=== PATIENT | male | born 1980 | race Caucasian/White ===

== ENCOUNTER 2017-01-08 05:07 | Emergency (ER) | payer OTHER ==
[2017-01-08 05:49] VITALS: TEMP 97.9; BMI 29.0
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
[2017-01-08] MEDS: SODIUM CHLORIDE 1,000 ML IV STA (06:20)
[2017-01-08 06:31] LABS: BASOPHIL 0.8 % (0-2.0); EOSINOPHIL 0.5 % (0-4.5); MCH 29.6 pg (25.7-33.7); MCHC 33.8 g/dl (32.0-35.9); MEAN CELL VOLUME 87.7 fl (80-96); MEAN PLT VOLUME 9.2 fl (7.5-11.1); NEUTROPHILS 62.1 % (42.8-82.8); PLATELET COUNT 242 K/MM3 (134-434); RDW 14.2 % (11.9-15.9); WHITE BLOOD COUNT 5.9 K/mm3 (4.0-10.0)
[2017-01-08 06:40] LABS: INR 1.01 (0.82-1.09); PROTHROMBIN TIME (PATIENT) 11.1 SEC (9.98-11.88)
[2017-01-08 06:47] LABS: ALBUMIN 4.1 g/dl (3.4-5.0); ANION GAP 10 (8-16); BILIRUBIN,TOTAL 0.3 mg/dL (0.2-1.0); CALCIUM 8.5 mg/dL (8.5-10.1); CO2 25 mmol/L (21-32); COCKROFT - GAULT 170.09; CREATININE 0.7 mg/dL (0.7-1.3); GLUCOSE,RANDOM 106 mg/dL (74-106); MAGNESIUM 2.4 mg/dL (1.8-2.4); SGOT/AST 43 U/L (15-37); SGPT/ALT 67 U/L (12-78); TOT PROT 7.5 g/dl (6.4-8.2)
[2017-01-08 06:48] LABS: ALK PHOS 121 U/L (45-117)
[2017-01-08 08:55] VITALS: BP 137/70; PULSE 94
[2017-01-08] MEDS ORDERED: OXYCODONE/APAP 5/325MG COMBO TABLET ONE (09:25)
[2017-01-08] MEDS: DIPHTH,PERTUSS(ACELL),TET 0.5 ML DISP.SYRIN IM ONE (09:26)
[2017-01-08] MEDS: OXYCODONE/APAP 5/325MG COMBO TABLET PO ONE (09:39)
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
[2017-01-08 11:21] LABS: URINE APPEARANCE CLEAR; URINE BILIRUBIN NEGATIVE (NEGATIVE); URINE BLOOD NEGATIVE (NEGATIVE); URINE COLOR COLORLESS; URINE GLUCOSE (UA) NEGATIVE (NEGATIVE); URINE KETONE NEGATIVE (NEGATIVE); URINE LEUK ESTERASE NEGATIVE (NEGATIVE); URINE NITRITE NEGATIVE (NEGATIVE); URINE PROTEIN NEGATIVE (NEGATIVE); URINE UROBILINOGEN NEGATIVE E.U./dl (0.2-1.0)
== END 2017-01-08 12:58 | disposition home or self-care (01) ==
LOC: JER 05:07
PROC: 3E0234Z Introduction of Serum, Toxoid and Vaccine into Muscle, Percutaneous Approach (ICD-10-PCS; principal; 2017-01-08)
PROC: 3E0337Z Introduction of Electrolytic and Water Balance Substance into Peripheral Vein, Percutaneous Approach (ICD-10-PCS; 2017-01-08)
DX: S60.222A Contusion of left hand, initial encounter (principal); S50.812A Abrasion of left forearm, initial encounter; V43.02XA Car driver injured in collision with other type car in nontraffic accident, initial encounter; Y93.89 Activity, other specified; Y92.410 Unspecified street and highway as the place of occurrence of the external cause
CPT/HCPCS: 36415; 70450-TC; 71260-TC; 72125-TC; 73110-TC-LT; 73130-TC-LT; 74177-TC; 80053; 80307; 81003; 83735; 85025; 85610; 90715; 99285-25

== ENCOUNTER 2017-02-16 19:30 | Inpatient (IN) | payer OTHER ==
[2017-02-16 20:03] LABS: URINE APPEARANCE CLEAR; URINE BILIRUBIN NEGATIVE (NEGATIVE); URINE COLOR LTYELLOW; URINE GLUCOSE (UA) NEGATIVE (NEGATIVE); URINE KETONE NEGATIVE (NEGATIVE); URINE LEUK ESTERASE NEGATIVE (NEGATIVE); URINE NITRITE NEGATIVE (NEGATIVE); URINE PROTEIN NEGATIVE (NEGATIVE); URINE UROBILINOGEN NEGATIVE E.U./dl (0.2-1.0)
[2017-02-16 20:09] LABS: URINE BLOOD 1+ (NEGATIVE)
[2017-02-16 20:10] LABS: URINE RBC 1 /hpf (0-3); URINE WBC 1 /hpf (3-5)
--- NOTE | 2017-02-16 20:40 | PDOC ---
History of Present Illness <Velma Scales - Last Filed: 02/16/17 20:39> - General History Source: Patient Exam Limitations: No Limitations - History of Present Illness Initial Comments: 02/16/17 22:31 The patient is a 36 year old male, with no significant past medical history of cholecystectomy (1 year ago) , who presents to the emergency room complaining of 1 week of epigastric pain. The patient explains that the pain has progressively worsened, is constant, and radiates to the left back. He notes that his bowel movements are normal. He denies fever, chills, nausea, vomiting. He denies diarrhea, constipation. He denies chest pain, SOB. He denies urinary changes. Allergies: none reported Social Hx: No tobacco use. Occasional alcohol use. PCP: none <Paige Henry - Last Filed: 02/16/17 23:35> <Radha Bruno - Last Filed: 02/17/17 01:53> - General Chief Complaint: Pain, Acute Stated Complaint: STOMACH PAIN Time Seen by Provider: 02/16/17 19:43 Past History - Past Medical History Anemia: No Asthma: No Cancer: No Cardiac Disorders: No CVA: No COPD: No CHF: No Dementia: No Diabetes: No GI Disorders: No Disorders: No HTN: No Hypercholesterolemia: No Liver Disease: No Seizures: No Thyroid Disease: No - Surgical History Abdominal Surgery: No Appendectomy: No Cardiac Surgery: No Cholecystectomy: Yes Lung Surgery: No Neurologic Surgery: No Orthopedic Surgery: No - Psycho/Social/Smoking Cessation Hx Anxiety: No Suicidal Ideation: No Smoking History: Never smoked Have you smoked in the past 12 months: No Number of Cigarettes Smoked Daily: 0 Hx Alcohol Use: Yes Drug/Substance Use Hx: No Substance Use Type: Alcohol <Velma Scales Lois - Last Filed: 02/16/17 20:39> <Paige Henry - Last Filed: 02/16/17 23:35> <Radha Bruno - Last Filed: 02/17/17 01:53> - Past Medical History Allergies/Adverse Reactions: Allergies Allergy/AdvReac Type Severity Reaction Status Date / Time No Known Allergies Allergy Verified 02/16/17 19:37 Home Medications: Ambulatory Orders NK [No Known Home Medication] 01/08/17 Review of Systems - Review of Systems Able to Perform ROS?: Yes Comments:: 02/16/17 22:31 CONSTITUTIONAL: Absent: fever, no chills, no fatigue EYES: Absent: visual changes ENT: Absent: ear pain, no sore throat CARDIOVASCULAR: Absent: chest pain, no palpitations RESPIRATORY: Absent: cough, no SOB GI: Present: epigastric pain radiating to the left back Absent: no nausea, no vomiting, no constipation, no diarrhea GENITOURINARY: Absent: dysuria, no frequency, no hematuria MUSCULOSKELETAL: Absent: back pain, no arthralgia, no myalgia SKIN: Absent: rash NEURO: Absent: headache <Paige Henry - Last Filed: 02/16/17 23:35> *Physical Exam - Vital Signs Last Vital Signs Temp Pulse Resp BP Pulse Ox 97.7 F 68 18 130/80 100 02/16/17 19:37 02/16/17 19:37 02/16/17 19:37 02/16/17 19:37 02/16/17 19:37 <Velma Scales - Last Filed: 02/16/17 20:39> - Vital Signs Last Vital Signs Temp Pulse Resp BP Pulse Ox 97.7 F 68 18 130/80 100 02/16/17 19:37 02/16/17 19:37 02/16/17 19:37 02/16/17 19:37 02/16/17 19:37 - Physical Exam Comments: 02/16/17 22:31 GENERAL: Well-appearing, well-nourished. No apparent distress. HEENT: Normocephalic, atraumatic. PERRL, EOM intact. CARDIOVASCULAR: Normal S1, S2. Regular rate and rhythm. PULMONARY: Clear to auscultation bilaterally. ABDOMEN: Soft, non-distended, non-tender. Good bowel sounds. EXTREMITIES: Normal ROM in all four extremities. No gross deformities. SKIN: Warm, dry. No rash NEUROLOGICAL: No focal neurological deficits. <Paige Henry - Last Filed: 02/16/17 23:35> - Vital Signs Last Vital Signs Temp Pulse Resp BP Pulse Ox 97.7 F 68 18 130/80 100 02/16/17 19:37 02/16/17 19:37 02/16/17 19:37 02/16/17 19:37 02/16/17 19:37 <Radha Bruno - Last Filed: 02/17/17 01:53> ED Treatment Course - ADDITIONAL ORDERS Additional order review: Laboratory Results 02/16/17 19:57 Urine Color Ltyellow Urine Appearance Clear Urine pH 5.0 Urine Protein Negative Urine Glucose (UA) Negative Urine Ketones Negative Urine Blood 1+ H Urine Nitrite Negative Urine Bilirubin Negative Urine Urobilinogen Negative Ur Leukocyte Esterase Negative Urine RBC 1 Urine WBC 1 Ur Epithelial Cells Rare <Velma Scales - Last Filed: 02/16/17 20:39> - LABORATORY CBC & Chemistry Diagram: 02/16/17 23:00 02/16/17 23:00 - ADDITIONAL ORDERS Additional order review: Laboratory Results 02/16/17 19:57 Urine Color Ltyellow Urine Appearance Clear Urine pH 5.0 Ur Specific [place] >= 1.030 H Urine Protein Negative Urine Glucose (UA) Negative Urine Ketones Negative Urine Blood 1+ H Urine Nitrite Negative Urine Bilirubin Negative Urine Urobilinogen Negative Ur Leukocyte Esterase Negative Urine RBC 1 Urine WBC 1 Ur Epithelial Cells Rare - RADIOLOGY Radiograph Interpretation: 02/16/17 23:35 Exam: Abdominal sonogram Findings: The visualized aorta has a normal caliber and the visualized pancreatic parenchyma is unremarkable. The liver is of normal appearance and echotexture measures 16.3 cm in length. Hepatopetal flow is demonstrated in the main portal vein. The CBD measures 6 mm in diameter near the upper limits of normal for size. The entire duct is not visualized. The right kidney has a normal appearance and echotexture measures 11.2 cm in length. No parenchymal mass, shadowing calculus or hydronephrosis is seen. Additional measurements of the CBD 24 mm in diameter. Impression: Status post cholecystectomy. Limited pancreas. The visualized parenchyma is unremarkable. Normal appearance of the liver and right kidney. CBD not entirely visualized. The visualized segment is nondistended. No calculi seen. THIS DOCUMENT HAS BEEN ELECTRONICALLY SIGNED Josue Valerio M.D. <Paige Henry - Last Filed: 02/16/17 23:35> - LABORATORY CBC & Chemistry Diagram: 02/16/17 23:00 02/16/17 23:00 - ADDITIONAL ORDERS Additional order review: Laboratory Results 02/16/17 02/16/17 23:00 19:57 Sodium 139 Potassium 4.1 Chloride 103 Carbon Dioxide 25 Anion Gap 11 BUN 14 Creatinine 0.9 D Creat Clearance w eGFR > 60 Random Glucose 103 Calcium 8.9 Total Bilirubin 1.0 D AST 276 H D ALT 208 H D Alkaline Phosphatase 139 H Total Protein 7.4 Albumin 4.0 Lipase 210 Urine Color Ltyellow Urine Appearance Clear Urine pH 5.0 Ur Specific [place] >= 1.030 H Urine Protein Negative Urine Glucose (UA) Negative Urine Ketones Negative Urine Blood 1+ H Urine Nitrite Negative Urine Bilirubin Negative Urine Urobilinogen Negative Ur Leukocyte Esterase Negative Urine RBC 1 Urine WBC 1 Ur Epithelial Cells Rare 02/16/17 23:00 RBC 5.05 MCV 87.7 MCHC 32.9 RDW 14.1 MPV 9.3 Neutrophils % 71.8 Lymphocytes % 19.4 D Monocytes % 8.1 Eosinophils % 0.2 Basophils % 0.5 - Medications Given in the ED: ED Medications Discontinued Medications Generic Name Dose Route Start Last Admin Trade Name Freq PRN Reason Stop Dose Admin Al Hydroxide/Mg Hydroxide 30 ml 02/16/17 22:57 02/16/17 23:12 Mylanta Oral Suspension - PO 02/16/17 22:58 30 ml ONCE ONE Administration Ranitidine HCl 300 mg 02/16/17 22:56 02/16/17 23:12 Zantac - PO 02/16/17 22:57 300 mg ONCE ONE Administration <Radha Bruno - Last Filed: 02/17/17 01:53> Medical Decision Making - Medical Decision Making 02/17/17 01:24 Patient Name: Paul Lopez This is a preliminary report by imaging integration manager Exam: Contrast-enhanced CT abdomen pelvis Images: [id number] Clinical indication: Epigastric pain. Findings: Subsegmental dependent atelectatic changes are noted in the lung bases. A calcified granuloma is noted in the left lobe of liver. The liver is otherwise unremarkable. The patient is status post cholecystectomy. There is slight thickening and enhancement of the cystic duct remnant and proximal CBD. Slight haziness of the periductal fat is noted. which The spleen and pancreas have a normal appearance. The adrenal glands are unremarkable. The kidneys have a normal appearance and enhance symmetrically. There is no evidence of urinary tract obstruction. The gastrointestinal tract does not appear obstructed. No thickened or dilated bowel is seen. The appendix is a normal appearance. There is no mesenteric infiltration. The urinary bladder , prostate and seminal vessels are unremarkable. No abdominal or pelvic adenopathy is seen. No lytic or blastic destructive osseous lesions are seen. Impression: Slight mural thickening and hyperemia of the cystic duct remnant and the proximal CBD with his infiltration of the fat in the hepatoduodenal ligament. Cholangitis can have this appearance. THIS DOCUMENT HAS BEEN ELECTRONICALLY SIGNED Pt needs admission for cholangitis I will treat with zosym <Radha Bruno - Last Filed: 02/17/17 01:53> *DC/Admit/Observation/Transfer <Velma Scales - Last Filed: 02/16/17 20:39> - Attestations Scribe Attestion: 02/16/17 22:31 Documentation prepared by AGNES Grady, acting as medical dermatologist for Velma Scales MD. <Paige Henry - Last Filed: 02/16/17 23:35> - Discharge Dispostion Admit: Yes <Radha Bruno - Last Filed: 02/17/17 01:53> Diagnosis at time of Disposition: Cholangitis, Mild alcohol abuse, Elevated liver enzymes, Cholecystitis - Discharge Dispostion Condition at time of disposition: Guarded
[2017-02-16] MEDS ORDERED: RANITIDINE HCL 150 MG TABLET (FP) PO ONE (22:56)
[2017-02-16] MEDS ORDERED: MAG HYDROX/AL HYDROX/SIMETH 30 ML UNIT-DOSE CUP PO ONE (22:57)
[2017-02-16] MEDS ORDERED: RANITIDINE HCL 50 MG/2 ML VIAL ONE (23:08)
[2017-02-16] MEDS ORDERED: MAG HYDROX/AL HYDROX/SIMETH 30 ML UNIT-DOSE CUP ONE (23:08)
[2017-02-16 23:09] LABS: BASOPHIL 0.5 % (0-2.0); EOSINOPHIL 0.2 % (0-4.5); MCH 28.8 pg (25.7-33.7); MCHC 32.9 g/dl (32.0-35.9); MEAN CELL VOLUME 87.7 fl (80-96); MEAN PLT VOLUME 9.3 fl (7.5-11.1); NEUTROPHILS 71.8 % (42.8-82.8); PLATELET COUNT 229 K/MM3 (134-434); RDW 14.1 % (11.9-15.9); WHITE BLOOD COUNT 11.5 K/mm3 (4.0-10.0)
[2017-02-16 23:45] LABS: ALK PHOS 139 U/L (45-117); ANION GAP 11 (8-16); CALCIUM 8.9 mg/dL (8.5-10.1); CO2 25 mmol/L (21-32); COCKROFT - GAULT 135.23; CREATININE 0.9 mg/dL (0.7-1.3); GLUCOSE,RANDOM 103 mg/dL (74-106); SGOT/AST 276 U/L (15-37); SGPT/ALT 208 U/L (12-78); TOT PROT 7.4 g/dl (6.4-8.2)
[2017-02-17] MEDS ORDERED: PIPERACILLIN/TAZOB 3.375 GM 3.375 GM in DEXTROSE 5%-WATER - 50 ML IVPB ONE (01:28)
[2017-02-17] MEDS ORDERED: PIPERACILLIN/TAZOB 3.375 GM 50 ML IVPB ONE (01:29)
--- NOTE | 2017-02-17 01:54 | PN ---
<Effie,Carlitosdian - Last Filed: 02/17/17 01:53> Teaching Attending Note Name of Resident: Kaci Espinal ATTENDING PHYSICIAN STATEMENT I saw and evaluated the patient. I reviewed the resident's note and discussed the case with the resident. I agree with the resident's findings and plan as documented. SUBJECTIVE: OBJECTIVE: ASSESSMENT AND PLAN: <Susan Gardiner - Last Filed: 02/17/17 02:07> Teaching Attending Note ATTENDING PHYSICIAN STATEMENT I saw and evaluated the patient. I reviewed the resident's note and discussed the case with the resident. I agree with the resident's findings and plan as documented. SUBJECTIVE: 36 year old male with pmhx of gastritis and cholecystectomy(1 year ago) with epigastric pain. Pain worsening over the course of week radiating to the back. He denies fever, chills, nausea, vomiting, or diarrhea. OBJECTIVE: VS: Last Vital Signs Temp Pulse Resp BP Pulse Ox 97.7 F 68 18 130/80 100 02/16/17 19:37 02/16/17 19:37 02/16/17 19:37 02/16/17 19:37 02/16/17 19:37 GEN: NAD HEENT: NCAT, PERRL CARD: RRR, S1 S2 RESP: CTAB ABD: NT, BWS x4 EXT: - CCE LABS: CBCD WBC 11.5 K/mm3 (4.0-10.0) H D 02/16/17 23:00 RBC 5.05 M/mm3 (4.00-5.60) 02/16/17 23:00 Hgb 14.6 GM/dL (11.7-16.9) 02/16/17 23:00 Hct 44.3 % (35.4-49) 02/16/17 23:00 MCV 87.7 fl (80-96) 02/16/17 23:00 MCHC 32.9 g/dl (32.0-35.9) 02/16/17 23:00 RDW 14.1 % (11.9-15.9) 02/16/17 23:00 Plt Count 229 K/MM3 (134-434) 02/16/17 23:00 MPV 9.3 fl (7.5-11.1) 02/16/17 23:00 CMP Sodium 139 mmol/L (136-145) 02/16/17 23:00 Potassium 4.1 mmol/L (3.5-5.1) 02/16/17 23:00 Chloride 103 mmol/L (98-107) 02/16/17 23:00 Carbon Dioxide 25 mmol/L (21-32) 02/16/17 23:00 Anion Gap 11 (8-16) 02/16/17 23:00 BUN 14 mg/dL (7-18) 02/16/17 23:00 Creatinine 0.9 mg/dL (0.7-1.3) D 02/16/17 23:00 Creat Clearance w eGFR > 60 (>60) 02/16/17 23:00 Calcium 8.9 mg/dL (8.5-10.1) 02/16/17 23:00 Total Bilirubin 1.0 mg/dL (0.2-1.0) D 02/16/17 23:00 AST 276 U/L (15-37) H D 02/16/17 23:00 ALT 208 U/L (12-78) H D 02/16/17 23:00 Alkaline Phosphatase 139 U/L (45-117) H 02/16/17 23:00 Total Protein 7.4 g/dl (6.4-8.2) 02/16/17 23:00 Albumin 4.0 g/dl (3.4-5.0) 02/16/17 23:00 IMAGING: This is a preliminary report by imaging sales promotion director Exam: Abdominal sonogram Findings: The visualized aorta has a normal caliber and the visualized pancreatic parenchyma is unremarkable. The liver is of normal appearance and echotexture measures 16.3 cm in length. Hepatopetal flow is demonstrated in the main portal vein. The CBD measures 6 mm in diameter near the upper limits of normal for size. The entire duct is not visualized. The right kidney has a normal appearance and echotexture measures 11.2 cm in length. No parenchymal mass, shadowing calculus or hydronephrosis is seen. Additional measurements of the CBD 24 mm in diameter. Impression: Status post cholecystectomy. Limited pancreas. The visualized parenchyma is unremarkable. Normal appearance of the liver and right kidney. CBD not entirely visualized. The visualized segment is nondistended. No calculi seen. THIS DOCUMENT HAS BEEN ELECTRONICALLY SIGNED Josue Valerio M.D. This is a preliminary report by imaging sales promotion director Exam: Contrast-enhanced CT abdomen pelvis Findings: Subsegmental dependent atelectatic changes are noted in the lung bases. A calcified granuloma is noted in the left lobe of liver. The liver is otherwise unremarkable. The patient is status post cholecystectomy. There is slight thickening and enhancement of the cystic duct remnant and proximal CBD. Slight haziness of the periductal fat is noted. which The spleen and pancreas have a normal appearance. The adrenal glands are unremarkable. The kidneys have a normal appearance and enhance symmetrically. There is no evidence of urinary tract obstruction. The gastrointestinal tract does not appear obstructed. No thickened or dilated bowel is seen. The appendix is a normal appearance. There is no mesenteric infiltration. The urinary bladder, prostate and seminal vessels are unremarkable. No abdominal or pelvic adenopathy is seen. No lytic or blastic destructive osseous lesions are seen. Impression: Slight mural thickening and hyperemia of the cystic duct remnant and the proximal CBD with his infiltration of the fat in the hepatoduodenal ligament. Cholangitis can have this appearance. THIS DOCUMENT HAS BEEN ELECTRONICALLY SIGNED Josue Valerio M.D. ASSESSMENT AND PLAN: 36 year old male with a pmhx of gastritis and cholecystitis presents with abdominal pain found to have elevated LFTs and leukocytosis and concern for cholangitis on US. 1. Abdominal pain - Differential diagnosis cholangitis vs. cholatocholelithisis - NPO - MRCP in AM - Gi consult - Zosyn - Blood cultures - IVF 2. Transaminitis - Hepatitis panel - MRCP 3. DVT ppx - Low risk - SCDs Place in [facility] Documentation prepared by Susan Gardiner, acting as medical assisting instructor for Vicky Chou D.O.
[2017-02-17] MEDS ORDERED: PANTOPRAZOLE SODIUM 100 ML IVPB ONE (02:16)
[2017-02-17] MEDS: SODIUM CHLORIDE 1,000 ML IV SCH (02:39)
--- NOTE | 2017-02-17 02:39 | HP ---
CHIEF COMPLAINT: abdominal pain PCP: none HISTORY OF PRESENT ILLNESS: 36 year old male with a significant psat medical history of gastritis, presents to the the emergency room with complaints of worsening mid epigastric abdominal pain that started last Friday. Patient states that the pain now travel to the right back, and 06/17, which is what provoked him to come to the ER. Denies fever, chills, n, v, melena, changes is bowel and bladder. Eating and drinking water aggravated symptoms. ER course was notable for: (1)leukocytosis, elevated AST/ALT (2)abdominal sono; abdominal CT suspicious of cholangitis Recent Travel: no; from [facility] PAST MEDICAL HISTORY: gastritis PAST SURGICAL HISTORY: cholecystectomy Social History: Smoking:no Alcohol:1-2 beers per week Drugs: no Family History: Allergies No Known Allergies Allergy (Verified 02/16/17 19:37) HOME MEDICATIONS: Home Medications Medication Instructions Recorded NK [No Known Home Medication] 01/08/17 REVIEW OF SYSTEMS CONSTITUTIONAL: Positive : loss of appetite Absent: fever, chills, diaphoresis, generalized weakness, malaise, weight change HEENT: Absent: rhinorrhea, nasal congestion, throat pain, throat swelling, difficulty swallowing, mouth swelling, ear pain, eye pain, visual changes CARDIOVASCULAR: Absent: chest pain, syncope, palpitations, irregular heart rate, lightheadedness , peripheral edema RESPIRATORY: Absent: cough, shortness of breath, dyspnea with exertion, orthopnea, wheezing, stridor, hemoptysis GASTROINTESTINAL: Positive: abdominal pain, Absent: abdominal distension, nausea, vomiting, diarrhea, constipation, melena , hematochezia GENITOURINARY: Absent: dysuria, frequency, urgency, hesitancy, hematuria, flank pain, genital pain MUSCULOSKELETAL: Absent: myalgia, arthralgia, joint swelling, back pain, neck pain SKIN: Absent: rash, itching, pallor HEMATOLOGIC/IMMUNOLOGIC: Absent: easy bleeding, easy bruising, lymphadenopathy, frequent infections ENDOCRINE: Absent: unexplained weight gain, unexplained weight loss, heat intolerance, cold intolerance NEUROLOGIC: Absent: headache, focal weakness or paresthesias, dizziness, unsteady gait, seizure, mental status changes, bladder or bowel incontinence PSYCHIATRIC: Absent: anxiety, depression, suicidal or homicidal ideation, hallucinations. PHYSICAL EXAMINATION Vital Signs - 24 hr 02/16/17 19:37 Temperature 97.7 F Pulse Rate 68 Respiratory 18 Rate Blood Pressure 130/80 O2 Sat by Pulse 100 Oximetry (%) GENERAL: Awake, alert, and fully oriented, in no acute distress. HEAD: Normal with no signs of trauma. LUNGS: decreased Breath sounds equal, clear to auscultation bilaterally. No wheezes, and no crackles. No accessory muscle use. HEART: Regular rate and rhythm, normal S1 and S2 without murmur, rub or gallop. ABDOMEN: Soft, very tender to palpation of the mid epigastrum, not distended, normoactive bowel sounds, no guarding, no rebound, no masses. No hepatomegaly or splenomegaly. MUSCULOSKELETAL: Normal range of motion at all joints. No bony deformities or tenderness. No CVA tenderness. UPPER EXTREMITIES: 2+ pulses, warm, well-perfused. No cyanosis. No clubbing. No peripheral edema. LOWER EXTREMITIES: 2+ pulses, warm, well-perfused. No calf tenderness. No peripheral edema. PSYCHIATRIC: Cooperative. Good eye contact. Appropriate mood and affect. SKIN: Warm, dry, normal turgor, no rashes or lesions noted, normal capillary refill. Laboratory Results - last 24 hr 02/16/17 02/16/17 02/16/17 19:57 23:00 23:00 WBC 11.5 H D RBC 5.05 Hgb 14.6 Hct 44.3 MCV 87.7 MCHC 32.9 RDW 14.1 Plt Count 229 MPV 9.3 Neutrophils % 71.8 Lymphocytes % 19.4 D Monocytes % 8.1 Eosinophils % 0.2 Basophils % 0.5 Sodium 139 Potassium 4.1 Chloride 103 Carbon Dioxide 25 Anion Gap 11 BUN 14 Creatinine 0.9 D Creat Clearance w eGFR > 60 Random Glucose 103 Calcium 8.9 Total Bilirubin 1.0 D AST 276 H D ALT 208 H D Alkaline Phosphatase 139 H Total Protein 7.4 Albumin 4.0 Lipase 210 Urine Color Ltyellow Urine Appearance Clear Urine pH 5.0 Ur Specific [place] >= 1.030 H Urine Protein Negative Urine Glucose (UA) Negative Urine Ketones Negative Urine Blood 1+ H Urine Nitrite Negative Urine Bilirubin Negative Urine Urobilinogen Negative Ur Leukocyte Esterase Negative Urine RBC 1 Urine WBC 1 Ur Epithelial Cells Rare IMAGING: Abdominal US Status post cholecystectomy. Limited pancreas. The visualized parenchyma is unremarkable. Normal appearance of the liver and right kidney. CBD not entirely visualized. The visualized segment is nondistended. No calculi seen. Abdominal CT with contrastSlight mural thickening and hyperemia of the cystic duct remnant and the proximal CBD with his infiltration of the fat in the hepatoduodenal ligament. Cholangitis can have this appearance. ASSESSMENT/PLAN: This is a 36 year old male with a past medical history of gastritis, s/p cholecysectomy 09/24, presents with abdominal pain, leukocytosis, transaminitis, imaging suspicious for cholangitis. #abdominal pain secondary to possible cholangitis vs choledolithiasis, gastritis -empiric zosyn, IVF -blood cultures -pain control -NPO -MRCP -gastro consulted #transaminitis possible secondary to alcohol induced or from cholangitis -AST>ALT -hepatitis panel -trend cmp #hx of gastritis: -protonix FEN: Fluids: NS 125mls Electrolytes: wnl Diet: npo VTE : scds Disposition: med surge/ pending MRCP/ GI consult Problem List - Problem (1) Alcohol use disorder, mild, abuse Code(s): F10.10 - ALCOHOL ABUSE, UNCOMPLICATED (2) Cholangitis Code(s): K83.0 - CHOLANGITIS (3) Abdominal pain Code(s): R10.9 - UNSPECIFIED ABDOMINAL PAIN (4) Epigastric pain Code(s): R10.13 - EPIGASTRIC PAIN Visit type - Emergency Visit Emergency Visit: Yes ED Registration Date: 02/17/17 Care time: The patient presented to the Emergency Department on the above date and was hospitalized for further evaluation of their emergent condition. - New Patient This patient is new to me today: Yes Date on this admission: 02/17/17 - Critical Care Critical Care patient: No
[2017-02-17] MEDS ORDERED: PANTOPRAZOLE SODIUM 40 MG VIAL ONE (02:40)
[2017-02-17] MEDS ORDERED: morphine CARPU-JECT 2 MG/1 ML DISP.SYRIN ONE (02:41)
[2017-02-17] MEDS: morphine CARPU-JECT 2 MG/1 ML DISP.SYRIN IVPUSH PRN ×3 (02:51→23:30)
[2017-02-17 07:55] VITALS: BMI 30.3
[2017-02-17] MEDS: PANTOPRAZOLE SODIUM 100 ML IVPB SCH (09:32)
[2017-02-17] MEDS ORDERED: PIPERACILLIN/TAZOB 3.375 GM/50 ML PRE-DOCKED IVPB SCH (10:00)
--- NOTE | 2017-02-17 12:21 | PN ---
Progress Note (short form) - Note Progress Note: ID Consult dictated Possible Cholangitis ?Alcoholic hepatitis Await c/s MRCP/ GI consult Empiric zosyn
[2017-02-17 12:58] LABS: URINE MARIJUANA THC NEGATIVE ng/ml (CUTOFF=50)
--- NOTE | 2017-02-17 14:04 | EKG ---
Test Reason : Blood Pressure : / mmHG Vent. Rate : 067 BPM Atrial Rate : 067 BPM P-R Int : 150 ms QRS Dur : 096 ms QT Int : 384 ms P-R-T Axes : 043 078 044 degrees QTc Int : 405 ms NORMAL SINUS RHYTHM NORMAL ECG NO PREVIOUS ECGS AVAILABLE Confirmed by DMITRIY CRAWLEY MD ([id number]) on 02/17/2017 2:03:49 PM Referred By: Confirmed By:DMITRIY CRAWLEY MD
--- NOTE | 2017-02-17 16:12 | PN ---
Physical Exam: SUBJECTIVE: Patient seen and examined at bedside. No overnight events. No new complaints. Abd. pain has improved significantly . Denies CP,KENNEY, SOB, palpitations, N/V. OBJECTIVE: Vital Signs Period Temp Pulse Resp BP Sys/Pittman Pulse Ox Last 24 Hr 97.8 F-98.4 F 65-70 18-20 113-126/61-68 100 GENERAL: AAOx3 NAD HEAD: NC/AT EYES: PERRL, EOMI, sclera anicteric, conjunctiva clear. No ptosis. ENT: moist mucous membranes. NECK: supple, no JVD LUNGS: CTAB, no wheezing or rales HEART: RRR, S1S2, no M/G/R ABDOMEN: Soft, mild epigastric tenderness, nondistended, normoactive bowel sounds, no guarding, no rebound, no hepatosplenomegaly, no masses. EXTREMITIES: 2+ pulses, warm, well-perfused, no edema. NEUROLOGICAL: Cranial nerves II through XII grossly intact. Normal speech, gait not observed. Laboratory Results - last 24 hr 02/17/17 02/17/17 07:20 11:15 Opiates Screen Positive Methadone Screen Negative Barbiturate Screen Negative Phencyclidine Screen Negative Ur Amphetamines Screen Negative MDMA (Ecstasy) Screen Negative Benzodiazepines Screen Negative Cocaine Screen Negative U Marijuana (THC) Screen Negative Alcohol, Quantitative < 5.0 Active Medications Generic Name Dose Route Start Last Admin Trade Name Freq PRN Reason Stop Dose Admin Sodium Chloride 1,000 mls @ 125 mls/hr 02/17/17 02:15 02/17/17 02:39 Normal Saline - IV 125 mls/hr ASDIR MARII Administration Pantoprazole Sodium 100 mls @ 200 mls/hr 02/17/17 10:00 02/17/17 09:32 Protonix 40mg Ivpb (Pre-Docked) IVPB 200 mls/hr DAILY MARII Administration Piperacillin Sod/Tazobactam Sod 50 mls @ 100 mls/hr 02/17/17 18:00 Zosyn 3.375gm Ivpb (Pre-Docked) IVPB Q8H-IV MARII Protocol Morphine Sulfate 1 mg 02/17/17 02:11 02/17/17 02:51 Morphine Injection - IVPUSH 1 mg Q4H PRN Administration PAIN IMAGING: * Abdominal US Status post cholecystectomy. Limited pancreas. The visualized parenchyma is unremarkable. Normal appearance of the liver and right kidney. CBD not entirely visualized. The visualized segment is nondistended. No calculi seen. * Abdominal CT with contrastSlight mural thickening and hyperemia of the cystic duct remnant and the proximal CBD with his infiltration of the fat in the hepatoduodenal ligament. Cholangitis can have this appearance. ASSESSMENT/PLAN: 36 year old male with a past medical history of gastritis, s/p cholecysectomy , presents with abdominal pain, leukocytosis, transaminitis, imaging suspicious for cholangitis. Problem List - Problems (1) Abdominal pain Assessment/Plan: * cholangitis vs choledolithiasis, gastritis * MRCP pending * Pain control * Dr. Spicer consulted for possible ERCP * Blood cultures pending. (2) Transaminitis Assessment/Plan: * Hepatitis panel pending. * AST>ALT ; ETOH? denies alcohol abuse. * Repeat labs in AM (3) H/O gastritis Assessment/Plan: * Continue PPI Visit type - Emergency Visit Emergency Visit: Yes ED Registration Date: 02/17/17 Care time: The patient presented to the Emergency Department on the above date and was hospitalized for further evaluation of their emergent condition. - New Patient This patient is new to me today: Yes Date on this admission: 02/17/17 - Critical Care Critical Care patient: No
[2017-02-17] MEDS: PIPERACILLIN/TAZOB 3.375 GM 50 ML IVPB SCH (17:33)
--- NOTE | 2017-02-17 18:23 | CONS ---
DATE OF CONSULTATION: 02/17/2017 CHIEF COMPLAINT: A 36-year-old male evaluated for possible cholangitis. HISTORY: Patient is status post cholecystectomy. He presents with a 1-week history of worsening epigastric pain. He was evaluated at [facility] where a sonogram showed a mildly dilated common bile duct. CT scan of the abdomen shows mural thickening of the common bile duct with evidence of possible cholangitis. Cultures were obtained and he was empirically treated with Zosyn. At the present time, he has no complaints of abdominal pain. He denies any vomiting or diarrhea. He has been afebrile. PAST SURGICAL HISTORY: Status post cholecystectomy. ALLERGIES: No known allergies. SOCIAL HISTORY: Negative for tobacco, occasional alcohol abuse. Patient denies heavy alcohol use. REVIEW OF SYSTEMS: Neurologic: No loss of consciousness, seizure activity, or focal weakness. Cardiac: Negative for chest pain or palpitations. Respiratory: Negative cough or sputum production. Gastrointestinal: As per HPI. Genitourinary: Negative for urinary tract infection. LABORATORY DATA: White count 11.5, hematocrit 44.3, platelet count 229, BUN 14, creatinine 0.9. Total bilirubin 1.0, alkaline phosphatase 139, ALT 276, AST 208. PHYSICAL EXAMINATION: General: He is awake and in no acute distress. Vital signs: Temperature 97.9, blood pressure 120/67, pulse 66 and regular, respirations 20 per minute. HEENT: Sclerae anicteric. Heart: Sounds S1, S2. Lungs: Clear. Abdomen: Soft, mild right upper quadrant tenderness to palpation. No mass, rebound, or rigidity. Extremities: Negative for edema. IMPRESSION: 1. Possible cholangitis. 2. Possible alcoholic hepatitis. PLAN: Await culture results. MRCP ordered. GI consultation. Empiric Zosyn 3.375 g IV piggy back every 8 hours for empiric coverage of biliary tract pathogens. Thank you for the kind referral. KERRI CHOU M.D. JHONNY/[id number]
--- NOTE | 2017-02-17 20:44 | PN ---
Teaching Attending Note Name of Resident: Roque Schneider ATTENDING PHYSICIAN STATEMENT I saw and evaluated the patient. I reviewed the resident's note and discussed the case with the resident. I agree with the resident's findings and plan as documented. SUBJECTIVE: Patient is feeling better, has less pain than before. OBJECTIVE: Vital Signs Temperature 98.5 F 02/17/17 16:15 Pulse Rate 86 02/17/17 16:15 Respiratory Rate 20 02/17/17 16:15 Blood Pressure 109/65 02/17/17 16:15 O2 Sat by Pulse Oximetry (%) 100 02/17/17 09:00 CBCD WBC 11.5 K/mm3 (4.0-10.0) H D 02/16/17 23:00 RBC 5.05 M/mm3 (4.00-5.60) 02/16/17 23:00 Hgb 14.6 GM/dL (11.7-16.9) 02/16/17 23:00 Hct 44.3 % (35.4-49) 02/16/17 23:00 MCV 87.7 fl (80-96) 02/16/17 23:00 MCHC 32.9 g/dl (32.0-35.9) 02/16/17 23:00 RDW 14.1 % (11.9-15.9) 02/16/17 23:00 Plt Count 229 K/MM3 (134-434) 02/16/17 23:00 MPV 9.3 fl (7.5-11.1) 02/16/17 23:00 CMP Sodium 139 mmol/L (136-145) 02/16/17 23:00 Potassium 4.1 mmol/L (3.5-5.1) 02/16/17 23:00 Chloride 103 mmol/L (98-107) 02/16/17 23:00 Carbon Dioxide 25 mmol/L (21-32) 02/16/17 23:00 Anion Gap 11 (8-16) 02/16/17 23:00 BUN 14 mg/dL (7-18) 02/16/17 23:00 Creatinine 0.9 mg/dL (0.7-1.3) D 02/16/17 23:00 Creat Clearance w eGFR > 60 (>60) 02/16/17 23:00 Random Glucose 103 mg/dL (74-106) 02/16/17 23:00 Calcium 8.9 mg/dL (8.5-10.1) 02/16/17 23:00 Total Bilirubin 1.0 mg/dL (0.2-1.0) D 02/16/17 23:00 AST 276 U/L (15-37) H D 02/16/17 23:00 ALT 208 U/L (12-78) H D 02/16/17 23:00 Alkaline Phosphatase 139 U/L (45-117) H 02/16/17 23:00 Total Protein 7.4 g/dl (6.4-8.2) 02/16/17 23:00 Albumin 4.0 g/dl (3.4-5.0) 02/16/17 23:00 Current Medications Generic Name Dose Route Start Last Admin Trade Name Freq PRN Reason Stop Dose Admin Sodium Chloride 1,000 mls @ 125 mls/hr 02/17/17 02:15 02/17/17 02:39 Normal Saline - IV 125 mls/hr ASDIR MARII Administration Pantoprazole Sodium 100 mls @ 200 mls/hr 02/17/17 10:00 02/17/17 09:32 Protonix 40mg Ivpb (Pre-Docked) IVPB 200 mls/hr DAILY MARII Administration Piperacillin Sod/Tazobactam Sod 50 mls @ 100 mls/hr 02/17/17 18:00 02/17/17 17: 33 Zosyn 3.375gm Ivpb (Pre-Docked) IVPB 100 mls/hr Q8H-IV MARII Administration Protocol Morphine Sulfate 1 mg 02/17/17 02:11 02/17/17 19:42 Morphine Injection - IVPUSH 1 mg Q4H PRN Administration PAIN Home Medications Medication Instructions Recorded NK [No Known Home Medication] 01/08/17 Abdominal US Status post cholecystectomy. Limited pancreas. The visualized parenchyma is unremarkable. Normal appearance of the liver and right kidney. CBD not entirely visualized. The visualized segment is nondistended. No calculi seen. Abdominal CT with contrastSlight mural thickening and hyperemia of the cystic duct remnant and the proximal CBD with his infiltration of the fat in the hepatoduodenal ligament. Cholangitis can have this appearance. ASSESSMENT AND PLAN: 36 year old male with a past medical history of gastritis, s/p cholecysectomy , presents with abdominal pain, leukocytosis, transaminitis, imaging suspicious for cholangitis. # Abdominal pain improving with hx of Cholecystectomy r/o retained stone , for consult. Pain control, Blood cultures pending. On IV antibiotic continue. Pending MRCP # Acute Transaminitis Hepatitis panel pending, repeat levels in am. denies any ETOH use with hx of cholecystectomy. Repeat labs in AM # H/O gastritis continue PPI DVT Px: SCD
[2017-02-18] MEDS: PIPERACILLIN/TAZOB 3.375 GM 50 ML IVPB SCH ×3 (02:12→17:28)
[2017-02-18] MEDS: morphine CARPU-JECT 2 MG/1 ML DISP.SYRIN IVPUSH PRN ×6 (02:36→22:53)
[2017-02-18 08:09] LABS: BASOPHIL 0.5 % (0-2.0); EOSINOPHIL 0.1 % (0-4.5); MCH 29.6 pg (25.7-33.7); MCHC 33.5 g/dl (32.0-35.9); MEAN CELL VOLUME 88.3 fl (80-96); NEUTROPHILS 79.8 % (42.8-82.8); PLATELET COUNT 213 K/MM3 (134-434); RDW 14.6 % (11.9-15.9); WHITE BLOOD COUNT 7.9 K/mm3 (4.0-10.0)
[2017-02-18 08:39] LABS: ALBUMIN 3.8 g/dl (3.4-5.0); ANION GAP 11 (8-16); CO2 25 mmol/L (21-32); COCKROFT - GAULT 155.48; CREATININE 0.8 mg/dL (0.7-1.3); GLUCOSE,RANDOM 113 mg/dL (74-106); SGOT/AST 275 U/L (15-37)
[2017-02-18 08:41] LABS: ALK PHOS 231 U/L (45-117); BILIRUBIN,TOTAL 7.6 mg/dL (0.2-1.0); TOT PROT 7.3 g/dl (6.4-8.2)
[2017-02-18 08:44] LABS: SGPT/ALT 658 U/L (12-78)
[2017-02-18] MEDS: PANTOPRAZOLE SODIUM 100 ML IVPB SCH (10:05)
[2017-02-18] MEDS: LACTATED RINGERS SOLUTION 1,000 ML IV SCH (12:29)
--- NOTE | 2017-02-18 15:29 | PN ---
Physical Exam: Patient seen and examined at bedside. No overnight events. No new complaints. Abd. pain has improved significantly . Denies CP,KENNEY, SOB, palpitations, N/V. OBJECTIVE: Vital Signs Period Temp Pulse Resp BP Sys/Pittman Pulse Ox Last 24 Hr 97.8 F-98.4 F 65-70 18-20 113-126/61-68 100 GENERAL: AAOx3 NAD HEAD: NC/AT EYES: PERRL, EOMI, sclera anicteric, conjunctiva clear. No ptosis. ENT: moist mucous membranes. NECK: supple, no JVD LUNGS: CTAB, no wheezing or rales HEART: RRR, S1S2, no M/G/R ABDOMEN: Soft, mild epigastric tenderness, nondistended, normoactive bowel sounds, no guarding, no rebound, no hepatosplenomegaly, no masses. EXTREMITIES: 2+ pulses, warm, well-perfused, no edema. NEUROLOGICAL: Cranial nerves II through XII grossly intact. Normal speech, gait not observed. Laboratory Results - last 24 hr 02/17/17 02/18/17 02/18/17 07:20 07:15 07:15 WBC 7.9 D RBC 5.09 Hgb 15.1 Hct 45.0 MCV 88.3 MCHC 33.5 RDW 14.6 Plt Count 213 MPV 9.0 Neutrophils % 79.8 Lymphocytes % 12.8 D Monocytes % 6.8 Eosinophils % 0.1 Basophils % 0.5 Sodium 138 Potassium 4.0 Chloride 102 Carbon Dioxide 25 Anion Gap 11 BUN 6 L D Creatinine 0.8 Creat Clearance w eGFR > 60 Random Glucose 113 H Calcium 9.0 Total Bilirubin 7.6 H D AST 275 H ALT 658 H D Alkaline Phosphatase 231 H D Total Protein 7.3 Albumin 3.8 Hepatitis C Antibody <0.1 Active Medications Generic Name Dose Route Start Last Admin Trade Name Freq PRN Reason Stop Dose Admin Pantoprazole Sodium 100 mls @ 200 mls/hr 02/17/17 10:00 02/18/17 10:05 Protonix 40mg Ivpb (Pre-Docked) IVPB 200 mls/hr DAILY MARII Administration Piperacillin Sod/Tazobactam Sod 50 mls @ 100 mls/hr 02/17/17 18:00 02/18/17 10: 57 Zosyn 3.375gm Ivpb (Pre-Docked) IVPB 100 mls/hr Q8H-IV MARII Administration Protocol Lactated Ringer's 1,000 mls @ 125 mls/hr 02/18/17 10:15 02/18/17 12:29 Lactated Ringers Solution IV 125 mls/hr ASDIR MARII Administration Morphine Sulfate 1 mg 02/17/17 02:11 02/18/17 14:27 Morphine Injection - IVPUSH 1 mg Q4H PRN Administration PAIN IMAGING: * Abdominal US Status post cholecystectomy. Limited pancreas. The visualized parenchyma is unremarkable. Normal appearance of the liver and right kidney. CBD not entirely visualized. The visualized segment is nondistended. No calculi seen. * Abdominal CT with contrastSlight mural thickening and hyperemia of the cystic duct remnant and the proximal CBD with his infiltration of the fat in the hepatoduodenal ligament. Cholangitis can have this appearance. ASSESSMENT/PLAN: 36 year old male with a past medical history of gastritis, s/p cholecysectomy , presents with abdominal pain, leukocytosis, transaminitis, imaging suspicious for cholangitis. Problem List - Problems (1) Abdominal pain Assessment/Plan: * cholangitis vs choledolithiasis, gastritis * MRCP done not read yet * Pain control * Dr. Juarez consulted for possible ERCP * Blood cultures (-) (2) Transaminitis Assessment/Plan: * Hepatitis panel pending. * AST>ALT ; ETOH? denies alcohol abuse. * Repeat labs in AM (3) H/O gastritis Assessment/Plan: * Continue PPI Visit type - Emergency Visit Emergency Visit: Yes ED Registration Date: 02/17/17 Care time: The patient presented to the Emergency Department on the above date and was hospitalized for further evaluation of their emergent condition. - New Patient This patient is new to me today: No - Critical Care Critical Care patient: No
--- NOTE | 2017-02-18 16:01 | PN ---
Teaching Attending Note Name of Resident: Roque Schneider ATTENDING PHYSICIAN STATEMENT I saw and evaluated the patient. I reviewed the resident's note and discussed the case with the resident. I agree with the resident's findings and plan as documented. SUBJECTIVE: Patient is c/o having more abdominal pain than yesterday. OBJECTIVE: Vital Signs Temperature 97.9 F 02/18/17 14:08 Pulse Rate 62 02/18/17 14:08 Respiratory Rate 18 02/18/17 14:08 Blood Pressure 131/76 02/18/17 14:08 O2 Sat by Pulse Oximetry (%) 100 02/18/17 09:00 CBCD WBC 7.9 K/mm3 (4.0-10.0) D 02/18/17 07:15 RBC 5.09 M/mm3 (4.00-5.60) 02/18/17 07:15 Hgb 15.1 GM/dL (11.7-16.9) 02/18/17 07:15 Hct 45.0 % (35.4-49) 02/18/17 07:15 MCV 88.3 fl (80-96) 02/18/17 07:15 MCHC 33.5 g/dl (32.0-35.9) 02/18/17 07:15 RDW 14.6 % (11.9-15.9) 02/18/17 07:15 Plt Count 213 K/MM3 (134-434) 02/18/17 07:15 MPV 9.0 fl (7.5-11.1) 02/18/17 07:15 CMP Sodium 138 mmol/L (136-145) 02/18/17 07:15 Potassium 4.0 mmol/L (3.5-5.1) 02/18/17 07:15 Chloride 102 mmol/L (98-107) 02/18/17 07:15 Carbon Dioxide 25 mmol/L (21-32) 02/18/17 07:15 Anion Gap 11 (8-16) 02/18/17 07:15 BUN 6 mg/dL (7-18) L D 02/18/17 07:15 Creatinine 0.8 mg/dL (0.7-1.3) 02/18/17 07:15 Creat Clearance w eGFR > 60 (>60) 02/18/17 07:15 Random Glucose 113 mg/dL (74-106) H 02/18/17 07:15 Calcium 9.0 mg/dL (8.5-10.1) 02/18/17 07:15 Total Bilirubin 7.6 mg/dL (0.2-1.0) H D 02/18/17 07:15 AST 275 U/L (15-37) H 02/18/17 07:15 ALT 658 U/L (12-78) H D 02/18/17 07:15 Alkaline Phosphatase 231 U/L (45-117) H D 02/18/17 07:15 Total Protein 7.3 g/dl (6.4-8.2) 02/18/17 07:15 Albumin 3.8 g/dl (3.4-5.0) 02/18/17 07:15 Current Medications Generic Name Dose Route Start Last Admin Trade Name Freq PRN Reason Stop Dose Admin Pantoprazole Sodium 100 mls @ 200 mls/hr 02/17/17 10:00 02/18/17 10:05 Protonix 40mg Ivpb (Pre-Docked) IVPB 200 mls/hr DAILY MARII Administration Piperacillin Sod/Tazobactam Sod 50 mls @ 100 mls/hr 02/17/17 18:00 02/18/17 10: 57 Zosyn 3.375gm Ivpb (Pre-Docked) IVPB 100 mls/hr Q8H-IV MARII Administration Protocol Lactated Ringer's 1,000 mls @ 125 mls/hr 02/18/17 10:15 02/18/17 12:29 Lactated Ringers Solution IV 125 mls/hr ASDIR MARII Administration Morphine Sulfate 1 mg 02/17/17 02:11 02/18/17 14:27 Morphine Injection - IVPUSH 1 mg Q4H PRN Administration PAIN Home Medications Medication Instructions Recorded NK [No Known Home Medication] 01/08/17 Abdominal US Status post cholecystectomy. Limited pancreas. The visualized parenchyma is unremarkable. Normal appearance of the liver and right kidney. CBD not entirely visualized. The visualized segment is nondistended. No calculi seen. Abdominal CT with contrastSlight mural thickening and hyperemia of the cystic duct remnant and the proximal CBD with his infiltration of the fat in the hepatoduodenal ligament. Cholangitis can have this appearance. ASSESSMENT AND PLAN: 36 year old male with a past medical history of gastritis, s/p cholecysectomy , presents with abdominal pain, leukocytosis, transaminitis, imaging suspicious for cholangitis. # Abdominal pain is worsening with worsening LFTs with hx of Cholecystectomy , MRCP was negative for any retained stone, discussed with . Pain control, Blood cultures pending. On IV antibiotic continue. r # Acute Transaminitis Hepatitis panel pending, repeat levels in am. denies any ETOH use with hx of cholecystectomy. Repeat labs in AM # H/O gastritis continue PPI DVT Px: SCD
--- NOTE | 2017-02-18 18:16 | CON.GI ---
Consult Consult Specialty:: GASTROENTEROLOGY - History of Present Illness Chief Complaint: EPIGASTRIC PAIN RADIATING TO LEFT BACK History of Present Illness: 36 YEAR OLD MALE WITH HISTORY OF NECROTIC CHOLECYSTITIS IN 2016 AND IS S/P CHOLECYSECTOMY BY DR RUIZ. HE HAS BEEN DOING WELL BUT LAST FRIDAY STARTED TO HAVE EPIGASTRIC PAIN THAT PROGRESSED IN SEVERITY AND HE CAME TO THE ED ON FRIDAY. HE DENIES FEVER, NAUSEA, VOMITING AN CHILLS. HIS LIVER FUNCTION TESTS WERE SLIGHTLY ELEVATED ON FRIDAY. CT SCAN SHOWED A 2.6 CM LONG CYSTIC DUCT REMNANT WITH WALL EDEMA AND POSSIBLE CLIPS OR STONES AT IN THE DUCT. CAES DISCUSSED WITH THE HOSPITALIST TODAY. MRCP ORDERED YESTERDAY AND I HAVE REVIEWED THIS WITH THE RADIOLOGIST. - History Source History Provided By: Patient Limitations to Obtaining History: No Limitations - Past Medical History EQUIP TECH: No: Alzheimer's, CVA, Dementia, Migraine, Multiple Sclerosis, Peripheral Neuropathy, Parkinson's, Seizure, Syncope, TIA, Vertigo, Other Cardio/Vascular: No: AFIB, Aneurysm, Aortic Insufficiency, Aortic Stenosis, CAD , CHF, Deep Vein Thrombosis, HTN, Hyperlipdemia, TN, Mitral Insufficiency, Mitral Stenosis, Murmur, Pulmonary Hypertension, Other Pulmonary: No: Asthma, Bronchitis, Cancer, COPD, O2 Dependent, Pneumonia, Previously Intubated, Pulmonary Embolus, Pulmonary Fibrosis, Sleep Apnea, Other Gastrointestinal: Yes: Other (Abdominal pain, gastritis, esophageal reflux). No : Ascites, Cancer, Constipation, Crohn's Disease, Diverticulitis, Diverticulosis , Esophageal Varices, Gastritis, GERD, GI Bleed, Hemorrhoids, Hiatal Hernia, Inflamatory Bowel Disease, Irritable Bowel Disease, Pancreatitis, Peptic Ulcer Disease, Ulcerative Colitis Hepatobiliary: Yes: Cholelithiasis, Cholecystitis Renal/: No: Renal Failure, Renal Inusuff, BPH, Cancer, Hematuria, Hemodialysis , Neurogenic Bladder, Renal Calculi, UTI, Other Heme/Onc: No: Anemia, B12 Deficiency, Bleeding Disorder, Cancer, Current Chemotherapy, Current Radiation Therapy, Hemochromatosis, Hypercoaguable State, Myeloproliferative Synd, Sickle Cell Disease, Sickle Cell Trait, Thrombocytopenia, Other Infectious Disease: No: AIDS, C-Diff, Herpes Zoster, HIV, MRSA, STD's, Tuberculosis, VREF, Other Psych: No: Addictions, Anxiety, Bipolar, Depression, Panic, Psychosis, Schizophrenia, Other Musculoskeletal: No: Bursitis, Chronic low back pain, Hemiparesis, Hemiplegia, Osteoarthritis, Paraplegia, Other Rheumatology: No: Fibromyalgia, Gout, Lupus, Rheumatoid Arthritis, Sarcoidosis, Vasculitis, Other Dermatology: No: Basal Cell, Cellulitis, Eczema, Melanoma, Psoriasis, Squamous Cell, Other - Past Surgical History Past Surgical History: Yes: None, Cholecystectomy - Alcohol/Substance Use Hx Alcohol Use: Yes (NON THIS WEEK OR LAST) History of Substance Use: reports: None - Smoking History Smoking history: Never smoked Have you smoked in the past 12 months: No Aproximately how many cigarettes per day: 0 - Social History Usual Living Arrangement: Other (Lives with brother) ADL: Independent Occupation: Currently unemployed History of Recent Travel: No Home Medications - Allergies Allergies/Adverse Reactions: Allergies Allergy/AdvReac Type Severity Reaction Status Date / Time No Known Allergies Allergy Verified 02/16/17 19:37 - Home Medications Home Medications: Ambulatory Orders NK [No Known Home Medication] 01/08/17 Family Disease History - Family Disease History Family Disease History: Heart Disease: Father Review of Systems - Review of Systems Constitutional: reports: No Symptoms Eyes: reports: No Symptoms HENT: reports: No Symptoms Neck: reports: No Symptoms Cardiovascular: reports: No Symptoms Respiratory: reports: No Symptoms Gastrointestinal: reports: Abdominal Pain Genitourinary: reports: No Symptoms Musculoskeletal: reports: No Symptoms Integumentary: reports: No Symptoms Hematology/Lymphatic: reports: No Symptoms Psychiatric: reports: No Symptoms Physical Exam-GI Vital Signs: Vital Signs Temperature 97.9 F 02/18/17 14:08 Pulse Rate 62 02/18/17 14:08 Respiratory Rate 18 02/18/17 14:08 Blood Pressure 131/76 02/18/17 14:08 O2 Sat by Pulse Oximetry (%) 100 02/18/17 09:00 Constitutional: Yes: Well Nourished Eyes: Yes: Sclera Icterus HENT: Yes: Normocephalic Neck: Yes: Supple Cardiovascular: Yes: Regular Rate and Rhythm Respiratory: Yes: Diminished Gastrointestinal Inspection: Yes: WNL ...Auscultate: Yes: Normoactive Bowel Sounds ...Palpate: Yes: Other (NONTENDER) Musculoskeletal: Yes: WNL Extremities: Yes: WNL Labs: CBC, BMP 02/18/17 07:15 02/18/17 07:15 Imaging - Results Cat Scan: Image Reviewed MRI: Image Reviewed Problem List - Problems (1) Abdominal pain Assessment/Plan: THE PATIENT PRESENTS WITH ABDOMINAL PAIN FOR ONE WEEK AND NOW HAS JAUNDICE AND RISING LFT'S. THERE MAY HAVE BEEN A CYSTIC DUCT STONE OR CBD STONE THAT HAS PASSED RESULTING IN THE LAB TESTS. THERE IS NO EVIDENCE OF DILATE BILE DUCTS OR STONES I HAVE REVIEWED THE MRI WITH THE RADIOLOGIST. I HAVE DISCUSSED THE CASE WITH THE HOSPITALIST: I WOULD KEEP THIS PATIENT NPO, HYDRATE WITH LR, REPEAT THE LFT 'S AND LIPASE IN THE AM. IF THE LFT'S ARE THE SAME OR WORSE I WOULD RECOMMEND ERCP (SUGGESTS STONE REMAINING). IF THEY SEEM TO BE IMPROVING (SUGGEST PASSAGE OF STONE) I WOULD OBSERVE AND SLOWLY ADVANCE DIET. AGREE WITH HEPATITIS PROFILE BUT I THINK THESE WILL BE NEGATIVE. Code(s): R10.9 - UNSPECIFIED ABDOMINAL PAIN Qualifiers: Abdominal location: right upper quadrant Qualified Code(s): R10.11 - Right upper quadrant pain (2) Elevated liver function tests Code(s): R79.89 - OTHER SPECIFIED ABNORMAL FINDINGS OF BLOOD CHEMISTRY (3) Cystic duct calculus Code(s): K80.20 - CALCULUS OF GALLBLADDER W/O CHOLECYSTITIS W/O OBSTRUCTION
[2017-02-18] MEDS: SODIUM CHLORIDE 1,000 ML IV SCH (19:38)
[2017-02-19] MEDS: PIPERACILLIN/TAZOB 3.375 GM 50 ML IVPB SCH ×3 (03:43→17:20)
[2017-02-19] MEDS: LACTATED RINGERS SOLUTION 1,000 ML IV SCH ×2 (03:43→18:22)
[2017-02-19] MEDS: morphine CARPU-JECT 2 MG/1 ML DISP.SYRIN IVPUSH PRN (03:44)
[2017-02-19 08:47] LABS: BASOPHIL 0.5 % (0-2.0); EOSINOPHIL 0.2 % (0-4.5); MCH 29.8 pg (25.7-33.7); MCHC 33.9 g/dl (32.0-35.9); MEAN CELL VOLUME 87.7 fl (80-96); MEAN PLT VOLUME 9.2 fl (7.5-11.1); NEUTROPHILS 71.7 % (42.8-82.8); PLATELET COUNT 211 K/MM3 (134-434); RDW 14.4 % (11.9-15.9); WHITE BLOOD COUNT 8.5 K/mm3 (4.0-10.0)
[2017-02-19 09:17] LABS: ALBUMIN 3.8 g/dl (3.4-5.0); ALK PHOS 250 U/L (45-117); ANION GAP 10 (8-16); BILIRUBIN,TOTAL 8.8 mg/dL (0.2-1.0); CALCIUM 9.3 mg/dL (8.5-10.1); CO2 27 mmol/L (21-32); COCKROFT - GAULT 155.48; CREATININE 0.8 mg/dL (0.7-1.3); GLUCOSE,RANDOM 99 mg/dL (74-106); SGOT/AST 128 U/L (15-37)
[2017-02-19 09:37] LABS: SGPT/ALT 482 U/L (12-78)
[2017-02-19] MEDS: PANTOPRAZOLE SODIUM 100 ML IVPB SCH (11:15)
--- NOTE | 2017-02-19 12:14 | PN ---
GI Progress Note Subjective: GASTROENTEROLOGY STATES HE IS BETTER TODAY BUT STILL HAS PAIN TRANSAMINASES IMPROVING, BILIRUBIN SLIGHTLY UP IS ALK PHOS AFEBRILE - Objective Vital Signs: Vital Signs Temperature 98.5 F 02/19/17 06:14 Pulse Rate 69 02/19/17 06:14 Respiratory Rate 20 02/19/17 06:14 Blood Pressure 124/72 02/19/17 06:14 O2 Sat by Pulse Oximetry (%) 100 02/18/17 21:00 Constitutional: Well Nourished Eyes: Yes: Sclera Icterus HENT: Yes: Atraumatic Neck: Yes: WNL Cardiovascular: Yes: Regular Rate and Rhythm Respiratory: Yes: Regular Gastrointestinal Inspection: Yes: WNL ...Auscultate: Yes: Normoactive Bowel Sounds ...Palpate: Yes: Soft Extremities: Yes: WNL Labs: CBC, BMP 02/19/17 07:30 02/19/17 07:30 Laboratory Tests 02/16/17 02/16/17 02/16/17 19:57 23:00 23:00 WBC 11.5 H D RBC Hgb Hct MCV MCHC RDW Plt Count MPV Neutrophils % Lymphocytes % Monocytes % Eosinophils % Basophils % Sodium Potassium Chloride Carbon Dioxide Anion Gap BUN Creatinine Creat Clearance w eGFR Total Bilirubin 1.0 D AST 276 H D ALT 208 H D Alkaline Phosphatase 139 H Lipase 210 Urine Bilirubin Negative Opiates Screen Methadone Screen Barbiturate Screen Phencyclidine Screen Ur Amphetamines Screen MDMA (Ecstasy) Screen Benzodiazepines Screen Cocaine Screen U Marijuana (THC) Screen Alcohol, Quantitative Hepatitis A Ab Total Hep Bs Antigen Hep Bs Antibody Hep B Core Total Ab Hepatitis C Antibody 02/17/17 02/17/17 02/17/17 07:20 07:20 11:15 WBC RBC Hgb Hct MCV MCHC RDW Plt Count MPV Neutrophils % Lymphocytes % Monocytes % Eosinophils % Basophils % Sodium Potassium Chloride Carbon Dioxide Anion Gap BUN Creatinine Creat Clearance w eGFR Total Bilirubin AST ALT Alkaline Phosphatase Lipase Urine Bilirubin Opiates Screen Positive Methadone Screen Negative Barbiturate Screen Negative Phencyclidine Screen Negative Ur Amphetamines Screen Negative MDMA (Ecstasy) Screen Negative Benzodiazepines Screen Negative Cocaine Screen Negative U Marijuana (THC) Screen Negative Alcohol, Quantitative < 5.0 Hepatitis A Ab Total Hep Bs Antigen Hep Bs Antibody Hep B Core Total Ab Hepatitis C Antibody <0.1 06/02/18/17 02/18/17 07:15 07:15 07:15 WBC 7.9 D RBC 5.09 Hgb 15.1 Hct 45.0 MCV 88.3 MCHC 33.5 RDW 14.6 Plt Count 213 MPV 9.0 Neutrophils % 79.8 Lymphocytes % 12.8 D Monocytes % 6.8 Eosinophils % 0.1 Basophils % 0.5 Sodium 138 Potassium 4.0 Chloride 102 Carbon Dioxide 25 Anion Gap 11 BUN 6 L D Creatinine 0.8 Creat Clearance w eGFR > 60 Total Bilirubin 7.6 H D AST 275 H ALT 658 H D Alkaline Phosphatase 231 H D Lipase Urine Bilirubin Opiates Screen Methadone Screen Barbiturate Screen Phencyclidine Screen Ur Amphetamines Screen MDMA (Ecstasy) Screen Benzodiazepines Screen Cocaine Screen U Marijuana (THC) Screen Alcohol, Quantitative Hepatitis A Ab Total Pending Hep Bs Antigen Pending Hep Bs Antibody Pending Hep B Core Total Ab Pending Hepatitis C Antibody 02/19/17 07:30 WBC RBC Hgb Hct MCV MCHC RDW Plt Count MPV Neutrophils % Lymphocytes % Monocytes % Eosinophils % Basophils % Sodium Potassium Chloride Carbon Dioxide Anion Gap BUN Creatinine Creat Clearance w eGFR Total Bilirubin 8.8 H AST 128 H D ALT 482 H D Alkaline Phosphatase 250 H Lipase Urine Bilirubin Opiates Screen Methadone Screen Barbiturate Screen Phencyclidine Screen Ur Amphetamines Screen MDMA (Ecstasy) Screen Benzodiazepines Screen Cocaine Screen U Marijuana (THC) Screen Alcohol, Quantitative Hepatitis A Ab Total Hep Bs Antigen Hep Bs Antibody Hep B Core Total Ab Hepatitis C Antibody Problem List - Problems (1) Abdominal pain Assessment/Plan: IMPROVED EXAM AND SOME DECREASE IN SYMPTOMS CONSULT FOR OPINION ON ERCP TO DR WHITESIDE I THINK THAT HE IS IMPROVING, SPOKE WITH HOSPITALIST AND SUGGESTED REPATING LFT' S TOMORROW, START CLEAR LIQUID DIET, IF IMPROVING BILI STARTS COMING DOWN WELL AKL PHOS COULD OBSERVE AND AVOID ERCP IF THE LABS THE SAME WOULD NEED ERCP Code(s): R10.9 - UNSPECIFIED ABDOMINAL PAIN Qualifiers: Abdominal location: right upper quadrant Qualified Code(s): R10.11 - Right upper quadrant pain (2) Elevated liver function tests Code(s): R79.89 - OTHER SPECIFIED ABNORMAL FINDINGS OF BLOOD CHEMISTRY (3) Cystic duct calculus Code(s): K80.20 - CALCULUS OF GALLBLADDER W/O CHOLECYSTITIS W/O OBSTRUCTION
--- NOTE | 2017-02-19 15:59 | PN ---
Teaching Attending Note Name of Resident: Roque Schneider ATTENDING PHYSICIAN STATEMENT I saw and evaluated the patient. I reviewed the resident's note and discussed the case with the resident. I agree with the resident's findings and plan as documented. SUBJECTIVE:Pain has improved , no nausea no vomiting OBJECTIVE: Vital Signs Temperature 98.6 F 02/19/17 15:10 Pulse Rate 92 H 02/19/17 15:10 Respiratory Rate 18 02/19/17 15:10 Blood Pressure 110/73 02/19/17 15:10 O2 Sat by Pulse Oximetry (%) 100 02/19/17 09:00 ABD soft , mildly tender in RUQ , BS positive LUngs - clear Heart S1 S2 positive No pedal edema CMP Sodium 137 mmol/L (136-145) 02/19/17 07:30 Potassium 4.0 mmol/L (3.5-5.1) 02/19/17 07:30 Chloride 100 mmol/L (98-107) 02/19/17 07:30 Carbon Dioxide 27 mmol/L (21-32) 02/19/17 07:30 Anion Gap 10 (8-16) 02/19/17 07:30 BUN 9 mg/dL (7-18) D 02/19/17 07:30 Creatinine 0.8 mg/dL (0.7-1.3) 02/19/17 07:30 Creat Clearance w eGFR > 60 (>60) 02/19/17 07:30 Random Glucose 99 mg/dL (74-106) 02/19/17 07:30 Calcium 9.3 mg/dL (8.5-10.1) 02/19/17 07:30 Total Bilirubin 8.8 mg/dL (0.2-1.0) H 02/19/17 07:30 AST 128 U/L (15-37) H D 02/19/17 07:30 ALT 482 U/L (12-78) H D 02/19/17 07:30 Alkaline Phosphatase 250 U/L (45-117) H 02/19/17 07:30 Total Protein 7.0 g/dl (6.4-8.2) 02/19/17 07:30 Albumin 3.8 g/dl (3.4-5.0) 02/19/17 07:30 Lipase 189 U/L (73-393) 02/19/17 07:30 Home Medication List Medication Instructions Recorded Confirmed Type NK [No Known Home Medication] 01/08/17 02/16/17 History Active Medications Generic Name Dose Route Start Last Admin Trade Name Trevon PRN Reason Stop Dose Admin Pantoprazole Sodium 100 mls @ 200 mls/hr 02/17/17 10:00 02/19/17 11:15 Protonix 40mg Ivpb (Pre-Docked) IVPB 200 mls/hr DAILY MARII Administration Piperacillin Sod/Tazobactam Sod 50 mls @ 100 mls/hr 02/17/17 18:00 02/19/17 10: 40 Zosyn 3.375gm Ivpb (Pre-Docked) IVPB 100 mls/hr Q8H-IV MARII Administration Protocol Lactated Ringer's 1,000 mls @ 125 mls/hr 02/18/17 10:15 02/19/17 03:43 Lactated Ringers Solution IV 125 mls/hr ASDIR MARII Administration Morphine Sulfate 1 mg 02/17/17 02:11 02/19/17 03:44 Morphine Injection - IVPUSH 1 mg Q4H PRN Administration PAIN CT SCAN SHOWED A 2.6 CM LONG CYSTIC DUCT REMNANT WITH WALL EDEMA AND POSSIBLE CLIPS OR STONES AT IN THE DUCT. A/P Epigastric pain - possibly secondary to passed stone . History of necrotizing cholecystitis in 2016, s/p cholecystectomy , now with evidence of cystic duct remnant and possible stones in it . MRCP non conclusive. All likley secondary to passed stone as pain has improved, however enzymes are still elevated . Unlikely cholangitis due to lack of systemic symptoms . * c/w IVF * repeat LFT / BILI in am * if no improvement will proceed with ERCP * discussed with GI * c/w empiric IVAB
--- NOTE | 2017-02-19 16:58 | PN ---
Physical Exam: SUBJECTIVE: Patient seen and examined at bedside. No overnight events. No new complaints. Abd. pain has improved significantly . Denies CP,KENNEY, SOB, palpitations, N/V OBJECTIVE: Vital Signs Period Temp Pulse Resp BP Sys/P[place] Pulse Ox Last 24 Hr 98.0 F-98.8 F 59-92 18-20 110-129/65-73 100-100 GENERAL: AAOx3 NAD HEAD: NC/AT EYES: PERRL, EOMI, icteric sclera, ENT: moist mucous membranes. NECK: supple, no JVD LUNGS: CTAB, no wheezing or rales HEART: RRR, S1S2, no M/G/R ABDOMEN: Soft, nontender, nondistended, normoactive bowel sounds, no guarding, no rebound, no hepatosplenomegaly, no masses. EXTREMITIES: 2+ pulses, warm, well-perfused, no edema. NEUROLOGICAL: Cranial nerves II through XII grossly intact. Normal speech, gait not observed. Laboratory Results - last 24 hr 02/19/17 02/19/17 07:30 07:30 WBC 8.5 RBC 5.09 Hgb 15.1 Hct 44.6 MCV 87.7 MCHC 33.9 RDW 14.4 Plt Count 211 MPV 9.2 Neutrophils % 71.7 Lymphocytes % 17.1 D Monocytes % 10.5 H Eosinophils % 0.2 D Basophils % 0.5 Sodium 137 Potassium 4.0 Chloride 100 Carbon Dioxide 27 Anion Gap 10 BUN 9 D Creatinine 0.8 Creat Clearance w eGFR > 60 Random Glucose 99 Calcium 9.3 Total Bilirubin 8.8 H AST 128 H D ALT 482 H D Alkaline Phosphatase 250 H Total Protein 7.0 Albumin 3.8 Lipase 189 Active Medications Generic Name Dose Route Start Last Admin Trade Name Freq PRN Reason Stop Dose Admin Pantoprazole Sodium 100 mls @ 200 mls/hr 02/17/17 10:00 02/19/17 11:15 Protonix 40mg Ivpb (Pre-Docked) IVPB 200 mls/hr DAILY MARII Administration Piperacillin Sod/Tazobactam Sod 50 mls @ 100 mls/hr 02/17/17 18:00 02/19/17 10: 40 Zosyn 3.375gm Ivpb (Pre-Docked) IVPB 100 mls/hr Q8H-IV MARII Administration Protocol Lactated Ringer's 1,000 mls @ 125 mls/hr 02/18/17 10:15 02/19/17 03:43 Lactated Ringers Solution IV 125 mls/hr ASDIR MARII Administration Morphine Sulfate 1 mg 02/17/17 02:11 02/19/17 03:44 Morphine Injection - IVPUSH 1 mg Q4H PRN Administration PAIN IMAGING: * MRCP . IMPRESSION: Status post cholecystectomy. 2.9 cm in length nondilated cystic duct remnant with no evidence of cystic duct or CBD stones nor biliary ductal dilatation. Mild edema surrounding the cystic duct remnant in addition to periportal edema could be seen with cholangitis. Correlate with clinical history and symptomatology as well as LFTs. ASSESSMENT/PLAN: 36 year old male with a past medical history of gastritis, s/p cholecysectomy , admitted for abdominal pain secondary to cholangitis. Problem List - Problems (1) Abdominal pain Assessment/Plan: * MRCP reported above - Mild edema surrounding the cystic duct remnant in addition to periportal edema * Pain resolved- possible passed stone * Alk phos and bili continue to rise ; will trend and if continue to rise possible ERCP. * Blood cultures (-) * GI consult appreciated. (2) Transaminitis Assessment/Plan: * Hepatitis panel pending. * trending down * Repeat labs in AM (3) H/O gastritis Assessment/Plan: * Continue PPI Visit type - Emergency Visit Emergency Visit: Yes ED Registration Date: 02/17/17 Care time: The patient presented to the Emergency Department on the above date and was hospitalized for further evaluation of their emergent condition. - New Patient This patient is new to me today: No - Critical Care Critical Care patient: No - Discharge Referral Referred to [facility] Med P.C.: No
--- NOTE | 2017-02-19 19:03 | PN ---
Progress Note (short form) - Note Progress Note: Called for ERCP consult on this 36M. D/W Dr sIaac Recommend transfer to [facility] should ERCP be necessary.
[2017-02-20 00:06] LABS: HEP B SURFACE AB Non Reactive (.)
[2017-02-20] MEDS: PIPERACILLIN/TAZOB 3.375 GM 50 ML IVPB SCH ×2 (01:27→10:10)
[2017-02-20] MEDS: LACTATED RINGERS SOLUTION 1,000 ML IV SCH ×2 (01:29→18:04)
[2017-02-20 08:49] LABS: BASOPHIL 0.9 % (0-2.0); EOSINOPHIL 1.3 % (0-4.5); MCH 29.8 pg (25.7-33.7); MCHC 33.6 g/dl (32.0-35.9); MEAN CELL VOLUME 88.7 fl (80-96); MEAN PLT VOLUME 9.3 fl (7.5-11.1); NEUTROPHILS 48.9 % (42.8-82.8); PLATELET COUNT 207 K/MM3 (134-434); RDW 14.8 % (11.9-15.9)
[2017-02-20 09:24] LABS: ALBUMIN 3.4 g/dl (3.4-5.0); ALK PHOS 267 U/L (45-117); ANION GAP 10 (8-16); BILIRUBIN,TOTAL 7.1 mg/dL (0.2-1.0); CALCIUM 8.8 mg/dL (8.5-10.1); CO2 27 mmol/L (21-32); COCKROFT - GAULT 124.38; GLUCOSE,RANDOM 96 mg/dL (74-106); SGOT/AST 122 U/L (15-37); SGPT/ALT 385 U/L (12-78); TOT PROT 6.7 g/dl (6.4-8.2)
[2017-02-20] MEDS: PANTOPRAZOLE SODIUM 100 ML IVPB SCH (11:08)
--- NOTE | 2017-02-20 13:24 | PN ---
Teaching Attending Note Name of Resident: Roque Schneider ATTENDING PHYSICIAN STATEMENT I saw and evaluated the patient. I reviewed the resident's note and discussed the case with the resident. I agree with the resident's findings and plan as documented. SUBJECTIVE: Denies abdominal pain , vomiting or nausea. No fever , no diarrhea. OBJECTIVE: Vital Signs Temperature 98.5 F 02/20/17 06:31 Pulse Rate 64 02/20/17 06:31 Respiratory Rate 20 02/20/17 06:31 Blood Pressure 95/58 02/20/17 06:31 O2 Sat by Pulse Oximetry (%) 100 02/19/17 21:00 ABD soft , mildly tender in RUQ , BS positive LUngs - clear Heart S1 S2 positive No pedal edema CMP Sodium 138 mmol/L (136-145) 02/20/17 08:00 Potassium 4.1 mmol/L (3.5-5.1) 02/20/17 08:00 Chloride 101 mmol/L (98-107) 02/20/17 08:00 Carbon Dioxide 27 mmol/L (21-32) 02/20/17 08:00 Anion Gap 10 (8-16) 02/20/17 08:00 BUN 13 mg/dL (7-18) D 02/20/17 08:00 Creatinine 1.0 mg/dL (0.7-1.3) D 02/20/17 08:00 Creat Clearance w eGFR > 60 (>60) 02/20/17 08:00 Random Glucose 96 mg/dL (74-106) 02/20/17 08:00 Calcium 8.8 mg/dL (8.5-10.1) 02/20/17 08:00 Total Bilirubin 7.1 mg/dL (0.2-1.0) H 02/20/17 08:00 AST 122 U/L (15-37) H 02/20/17 08:00 ALT 385 U/L (12-78) H D 02/20/17 08:00 Alkaline Phosphatase 267 U/L (45-117) H 02/20/17 08:00 Total Protein 6.7 g/dl (6.4-8.2) 02/20/17 08:00 Albumin 3.4 g/dl (3.4-5.0) 02/20/17 08:00 Lipase 189 U/L (73-393) 02/19/17 07:30 ASSESSMENT AND PLAN: Epigastric pain - possibly secondary to passed stone . History of necrotizing cholecystitis in 2016, s/p cholecystectomy , now with evidence of cystic duct remnant and possible stones in it . MRCP is non conclusive. All likley secondary to passed stone as pain has improved, however enzymes are still elevated . Unlikely cholangitis due to lack of systemic symptoms . Considering lack of significant improvement in liver enzymes and bilirubin should ERCP now is considered. I had a discussion with Dr Isaac yesterday and he too believes that patient needs ERCP. Dr Spicer was called yesterday and Dr Fleming recommendation is to transfer patient to [facility] to perform ERCP there. Case was discussed with accepting physician Patient is awaiting for transfer .
[2017-02-20 17:05] VITALS: TEMP 98.8
--- NOTE | 2017-02-20 17:10 | DS ---
Physical Exam: SUBJECTIVE: Patient seen and examined at bedside. No overnight events. No new complaints. Abd. pain has improved . Denies CP,KENNEY, SOB, palpitations, N/V OBJECTIVE: Vital Signs Period Temp Pulse Resp BP Sys/[place] Pulse Ox Last 24 Hr 97.8 F-98.5 F 64-74 20-20 95-135/58-69 99-100 PHYSICAL EXAM GENERAL: AAOx3 NAD HEAD: NC/AT EYES: PERRL, EOMI, icteric sclera, ENT: moist mucous membranes. NECK: supple, no JVD LUNGS: CTAB, no wheezing or rales HEART: RRR, S1S2, no M/G/R ABDOMEN: Soft, mild epigastric tenderness, nondistended, normoactive bowel sounds, no guarding, no rebound, no hepatosplenomegaly, no masses. EXTREMITIES: 2+ pulses, warm, well-perfused, no edema. NEUROLOGICAL: Cranial nerves II through XII grossly intact. Normal speech, gait not observed.. LABS Laboratory Results - last 24 hr 02/18/17 02/20/17 02/20/17 07:15 08:00 08:00 WBC 5.0 D RBC 5.06 Hgb 15.1 Hct 44.9 MCV 88.7 MCHC 33.6 RDW 14.8 Plt Count 207 MPV 9.3 Neutrophils % 48.9 D Lymphocytes % 33.7 D Monocytes % 15.2 H Eosinophils % 1.3 D Basophils % 0.9 Sodium 138 Potassium 4.1 Chloride 101 Carbon Dioxide 27 Anion Gap 10 BUN 13 D Creatinine 1.0 D Creat Clearance w eGFR > 60 Random Glucose 96 Calcium 8.8 Total Bilirubin 7.1 H AST 122 H ALT 385 H D Alkaline Phosphatase 267 H Total Protein 6.7 Albumin 3.4 Hep A IgM Ab Confirm Negative Hepatitis A Ab Total Positive H Hep Bs Antigen Negative Hep Bs Antibody Non reactive Hep B Core Total Ab Negative IMAGING: * Abdominal US Status post cholecystectomy. Limited pancreas. The visualized parenchyma is unremarkable. Normal appearance of the liver and right kidney. CBD not entirely visualized. The visualized segment is nondistended. No calculi seen. * Abdominal CT with contrastSlight mural thickening and hyperemia of the cystic duct remnant and the proximal CBD with his infiltration of the fat in the hepatoduodenal ligament. Cholangitis can have this appearance. * MRCP . IMPRESSION: Status post cholecystectomy. 2.9 cm in length nondilated cystic duct remnant with no evidence of cystic duct or CBD stones nor biliary ductal dilatation. Mild edema surrounding the cystic duct remnant in addition to periportal edema could be seen with cholangitis. Correlate with clinical history and symptomatology as well as LFTs. HOSPITAL COURSE: 36 year old male with a past medical history of gastritis, s/p cholecysectomy , admitted for abdominal pain with elevated liver enzymes and leukocytosis. Abdominal US and CT showed possible cholangitis. MRCP was done and showed mild edema surrounding the cystic duct remnant in addition to periportal edema that could be seen with cholangitis. He was started on IV Zosyn and received total of 4 days and PO Augmentin started day of transfer. Patients LFT's began to trend down. However bilirubin peaked at 8.8 and did not drop significantly. Also alk phos continued to rise. Seen by palliative care physician and recommended ERCP and transfer to [facility].Hepatitis panel reveled Hep A ab.positive. Patient has been accepted under the service of Dr. Vila for possible ERCP. Patients condition is fair at the time of transfer. Date of Admission:02/17/17 Date of Discharge: 02/20/17 Minutes to complete discharge: 35 Discharge Summary Reason For Visit: CHOLANGITIS ELEVATED LIVER ENZYMES Current Active Problems Cholangitis (Acute) Cystic duct calculus (Acute) Elevated liver enzymes (Acute) Elevated liver function tests (Acute) Transaminitis (Acute) Alcohol use disorder, mild, abuse (Chronic) H/O gastritis (Chronic) Condition: Fair - Instructions Diet, Activity, Other Instructions: -Transfer to [facility] for ERCP under service of Dr. Vila -Nothing by mouth for possible ERCP -Continue protonix upon transfer. -You have received 4 days of Zosyn and started on Augmentin today. Disposition: TRANSFER ACUTE CARE/OTHER HOSP Problem List - Problems (1) Cholangitis (2) Abdominal pain (3) Transaminitis (4) H/O gastritis This patient is new to me today: No Emergency Visit: Yes ED Registration Date: 02/17/17 Care time: The patient presented to the Emergency Department on the above date and was hospitalized for further evaluation of their emergent condition. Critical Care patient: No - Discharge Referral Referred to [facility] No
[2017-02-20] MEDS ORDERED: AMOX TR/POT CLAV 875MG/125MG TABLETS (FP) PO SCH (17:30)
[2017-02-20 22:49] VITALS: BP 120/62; PULSE 86
== END 2017-02-20 23:36 | disposition short-term general hospital (02) ==
LOC: JER 19:30 → JERBED 02-17 01:53 → J8W 02-17 05:20
PROVIDERS: ADMIT Internal Medicine; ATTEND Internal Medicine
DX: K80.20 Calculus of gallbladder without cholecystitis without obstruction (principal); K83.0 Cholangitis; R79.89 Other specified abnormal findings of blood chemistry; F10.10 Alcohol abuse, uncomplicated; K29.70 Gastritis, unspecified, without bleeding; B15.9 Hepatitis A without hepatic coma; R10.13 Epigastric pain; R17 Unspecified jaundice
CPT/HCPCS: 36415; 74177-TC; 74181-TC; 76705-TC; 80053; 80307; 81003; 81015; 83690; 85025; 86704; 86706; 86708; 86803; 87040; 87340; 93005; 93010; 97116-GP; 97161-GP; 99284-25

== ENCOUNTER 2021-12-21 23:20 | Emergency (ER) | payer OTHER ==
[2021-12-21 23:34] VITALS: BP 116/78; PULSE 86; TEMP 97.7; BMI 30.7
[2021-12-22] MEDS ORDERED: SODIUM CHLORIDE 0.9% 500 ML INFUS.BAG IV ONE (00:02)
[2021-12-22] MEDS ORDERED: ONDANSETRON 4 MG/2 ML VIAL IVPUSH ONE (00:03)
[2021-12-22] MEDS ORDERED: ONDANSETRON 4 MG/2 ML VIAL ONE (00:23)
[2021-12-22] MEDS ORDERED: ACETAMINOPHEN 1000 MG/100 ML BAG IVPB ONE (00:29)
[2021-12-22] MEDS ORDERED: ACETAMINOPHEN INJECTION 100 ML IVPB ONE (00:31)
[2021-12-22 00:34] LABS: PH,URINE 6.5 (5.0-8.0); URINE APPEARANCE CLEAR; URINE BILIRUBIN NEGATIVE (NEGATIVE); URINE COLOR YELLOW; URINE GLUCOSE (UA) NEGATIVE (NEGATIVE); URINE KETONE NEGATIVE (NEGATIVE); URINE LEUK ESTERASE NEGATIVE (NEGATIVE); URINE NITRITE NEGATIVE (NEGATIVE); URINE PROTEIN NEGATIVE (NEGATIVE); URINE UROBILINOGEN 0.2 mg/dL (0.2-1.0)
[2021-12-22 00:45] LABS: BASO % 0.2 % (0-2.0); EOS % 0.2 % (0-4.5); HEMOGLOBIN 14.6 GM/dL (11.7-16.9); LYMPH % 10.4 % (8-40); MCH 29.4 pg (25.7-33.7); MEAN CELL VOLUME 86.6 fl (80-96); MEAN PLT VOLUME 8.6 fl (7.5-11.1); MONO % 5.5 % (3.8-10.2); NEUT % 83.7 % (42.8-82.8); PLATELET COUNT 221 10^3/uL (134-434); RBC 4.96 M/mm3 (4.00-5.60); RDW 14.4 % (11.9-15.9); WHITE BLOOD COUNT 18.3 K/mm3 (4.0-10.0)
[2021-12-22 01:00] LABS: CALCIUM 8.4 mg/dL (8.5-10.1)
[2021-12-22 01:01] LABS: BLOOD UREA NITROGEN 15.3 mg/dL (7-18)
[2021-12-22 01:03] LABS: CREATININE 0.9 mg/dL (0.55-1.3)
[2021-12-22 01:05] LABS: BILIRUBIN,TOTAL 0.3 mg/dL (0.2-1); TOT PROT 7.2 g/dl (6.4-8.2)
[2021-12-22] MEDS ORDERED: LACTULOSE 20 GM/30 ML UDC (FOR ORAL USE ONLY) PO ONE (01:59)
[2021-12-22] MEDS ORDERED: LACTULOSE 20 GM/30 ML UDC (FOR ORAL USE ONLY) ONE (02:49)
== END 2021-12-22 04:58 | disposition home or self-care (01) ==
LOC: JER 23:20
PROC: 3E033GC Introduction of Other Therapeutic Substance into Peripheral Vein, Percutaneous Approach (ICD-10-PCS; principal; 2021-12-21)
DX: R10.13 Epigastric pain (principal); K59.00 Constipation, unspecified
CPT/HCPCS: 36415; 74177-TC; 80053; 81003; 83690; 85025; 87086; 99285-25

== ENCOUNTER 2024-05-03 21:43 | Emergency (ER) | payer OTHER ==
[2024-05-03 22:01] VITALS: RESP 18; BMI 27.9
[2024-05-03] MEDS ORDERED: ONDANSETRON 4 MG/2 ML VIAL ONE (22:40)
[2024-05-03] MEDS ORDERED: morphine SULFATE 4 MG/ML VIAL ONE (22:40)
[2024-05-03] MEDS: morphine CARPU-JECT 4 MG/1 ML DISP.SYRIN IVPUSH ONE (22:51)
[2024-05-03] MEDS: ONDANSETRON 4 MG/2 ML VIAL IVPUSH ONE (22:52)
[2024-05-03 23:02] LABS: BASO % 0.1 % (0-2.0); EOS % 0.1 % (0-4.5); HEMATOCRIT 44.1 % (35.4-49); HEMOGLOBIN 14.8 GM/dL (11.7-16.9); LYMPH % 8.4 % (8-40); MCH 29.3 pg (25.7-33.7); MCHC 33.7 g/dl (32.0-35.9); MEAN CELL VOLUME 86.9 fl (80-96); MEAN PLT VOLUME 8.5 fl (7.5-11.1); NEUT % 89.4 % (42.8-82.8); PLATELET COUNT 230 10^3/uL (134-434); RBC 5.07 M/mm3 (4.00-5.60); RDW 14.7 % (11.9-15.9); WHITE BLOOD COUNT 17.5 K/mm3 (4.0-10.0)
[2024-05-03 23:13] LABS: INR 1.06 (0.83-1.09)
[2024-05-03 23:37] LABS: CHLORIDE 106 mmol/L (98-107); SODIUM 142 mmol/L (136-145)
[2024-05-03 23:39] LABS: CALCIUM 8.9 mg/dL (8.5-10.1)
[2024-05-03 23:40] LABS: BLOOD UREA NITROGEN 19.6 mg/dL (7-18); CO2 24 mmol/L (21-32); GLUCOSE,RANDOM 133 mg/dL (74-106)
[2024-05-03 23:43] LABS: CREATININE 0.9 mg/dL (0.55-1.3); SGOT/AST 23 U/L (15-37); SGPT/ALT 39 U/L (13-61)
[2024-05-03 23:45] LABS: BILIRUBIN,TOTAL 0.4 mg/dL (0.2-1); TOT PROT 7.3 g/dl (6.4-8.2)
[2024-05-03 23:46] LABS: ALK PHOS 113 U/L (45-117)
[2024-05-04 00:09] LABS: ANION GAP 11 mmol/L (4-13); POTASSIUM 2.9 mmol/L (3.5-5.1)
[2024-05-04] MEDS ORDERED: POTASSIUM CHLORIDE ORAL LIQUID 20 MEQ/15 ML ONE (00:25)
[2024-05-04] MEDS ORDERED: CEFTRIAXONE 1 GM/50 ML BAG ONE (00:25)
[2024-05-04] MEDS ORDERED: DOXYCYCLINE HYCLATE 100 MG VIAL ONE (00:25)
[2024-05-04] MEDS ORDERED: MAGNESIUM 1GM/D5W - 1 GM/100 ML IVPB IVPB ONE (00:26)
[2024-05-04 00:34] LABS: MAGNESIUM 1.9 mg/dL (1.8-2.4)
[2024-05-04] MEDS: CEFTRIAXONE 1,000 MG in DEXTROSE 5%-WATER - 50 ML IVPB ONE (00:44)
[2024-05-04] MEDS: DOXYCYCLINE INJECTION 100 MG in DEXTROSE 5%-WATER 100 ML IVPB ONE (00:44)
[2024-05-04] MEDS: POTASSIUM CHLORIDE ORAL LIQUID 20 MEQ/15 ML PO ONE (00:44)
[2024-05-04] MEDS: MAGNESIUM 1GM/D5W - 1 GM/100 ML IVPB IVPB ONE (00:59)
[2024-05-04] MEDS: KCL 10 MEQ IVPB 10 MEQ/100 ML INFUS.BAG IVPB SCH (01:19)
[2024-05-04] MEDS ORDERED: MAG HYDROX/AL HYDROX/SIMETH 30 ML UNIT-DOSE CUP ONE (02:21)
[2024-05-04] MEDS ORDERED: KCL 10 MEQ IVPB 10 MEQ/100 ML INFUS.BAG IVPB ONE (02:21)
[2024-05-04] MEDS: MAG HYDROX/AL HYDROX/SIMETH 30 ML UNIT-DOSE CUP PO ONE (02:24)
[2024-05-04] MEDS: FAMOTIDINE 20 MG/50 ML IVPB 20 MG/50 ML MG IVPB ONE (02:24)
[2024-05-04 05:01] LABS: POTASSIUM 4.3 mmol/L (3.5-5.1)
[2024-05-04 05:02] LABS: CALCIUM 8.1 mg/dL (8.5-10.1)
[2024-05-04 05:03] LABS: BLOOD UREA NITROGEN 15.7 mg/dL (7-18)
[2024-05-04 05:06] LABS: CREATININE 0.7 mg/dL (0.55-1.3)
[2024-05-04 06:05] VITALS: BP 132/76; PULSE 68; TEMP 98.2
[2024-05-04] MEDS ORDERED: LACTATED RINGERS SOLUTION 1000 ML INFUS.BAG IV ONE (22:45)
== END 2024-05-04 06:05 | disposition home or self-care (01) ==
LOC: JER 21:43
PROC: 3E03329 Introduction of Other Anti-infective into Peripheral Vein, Percutaneous Approach (ICD-10-PCS; principal; 2024-05-04)
PROC: 3E03329 Introduction of Other Anti-infective into Peripheral Vein, Percutaneous Approach (ICD-10-PCS; 2024-05-04)
PROC: 3E033GC Introduction of Other Therapeutic Substance into Peripheral Vein, Percutaneous Approach (ICD-10-PCS; 2024-05-04)
PROC: 3E033GC Introduction of Other Therapeutic Substance into Peripheral Vein, Percutaneous Approach (ICD-10-PCS; 2024-05-04)
PROC: 3E033NZ Introduction of Analgesics, Hypnotics, Sedatives into Peripheral Vein, Percutaneous Approach (ICD-10-PCS; 2024-05-04)
PROC: 3E033GC Introduction of Other Therapeutic Substance into Peripheral Vein, Percutaneous Approach (ICD-10-PCS; 2024-05-04)
DX: R10.13 Epigastric pain (principal); R11.2 Nausea with vomiting, unspecified
CPT/HCPCS: 36415; 71046-TC-FY; 74177-TC; 80048; 80053; 83690; 83735; 84484; 85025; 85610; 86850; 86900; 86901; 93005; 93010; 99285-25; Q9967

== ENCOUNTER 2024-12-04 17:14 | Emergency (ER) | payer OTHER ==
[2024-12-04 17:24] VITALS: BP 124/76; PULSE 69; RESP 20; TEMP 97.6; BMI 30.9
[2024-12-04] MEDS ORDERED: TETRACAINE 0.5% OPHTH SOLN 2 ML BOTTLE ONE (17:35)
[2024-12-04] MEDS ORDERED: FLUORESCEIN NA 1 EA STRIP ONE (17:35)
[2024-12-04] MEDS: TETRACAINE 0.5% HCL 0.6ML DROPPER.BOTTLE OD ONE (17:36)
[2024-12-04] MEDS: FLUORESCEIN NA 1 EA STRIP OD ONE (17:36)
[2024-12-04] MEDS ORDERED: ERYTHROMYCIN 0.5% OPHTHALMIC OINTMENT 3.5 GM TUBE OD SCH (17:45)
[2024-12-04] MEDS ORDERED: ERYTHROMYCIN 0.5% OPHTHALMIC OINTMENT 3.5 GM TUBE ONE (17:59)
== END 2024-12-04 18:00 | disposition home or self-care (01) ==
LOC: JERFT 17:14
DX: S05.01XA Injury of conjunctiva and corneal abrasion without foreign body, right eye, initial encounter (principal); W26.8XXA Contact with other sharp object(s), not elsewhere classified, initial encounter; Y99.0 Civilian activity done for income or pay
CPT/HCPCS: 99283-25